=== PATIENT | female | born 1965 | race African-American/Black ===

== ENCOUNTER 2018-12-06 19:46 | Emergency (ER) | payer OTHER ==
[~2018-12-06] VITALS: Ht 165.1 cm; Wt 79.8 kg
[2018-12-06] MEDS ORDERED: NORCO 10-325 T1 EACH PO (21:36)
[2018-12-06] MEDS ORDERED: IBUPROFEN 800800 M1 PO (21:36)
[2018-12-06 21:40] VITALS: BP 129/64
== END 2018-12-06 21:43 | disposition home or self-care (01) ==
LOC: ER 19:46
DX: M79.652 Pain in left thigh (principal); M25.551 Pain in right hip